=== PATIENT | female | born 1945 | race Caucasian/White ===

== ENCOUNTER → 2016-11-22 | Outpatient (CLI) | payer MEDICARE ==
[~2016-11-22] MED LIST: AMLODIPINE BESYL5 MG PO; ASPIRIN81 M2 PO; ASPIRIN81 MG PO; CALTRATE-600/VI1 TA2 PO; FISH OIL500 MG PO; FLEXERIL10 MG PO; IMDUR-ER30 M1 PO; LEVOTHYROXINE25 MCG PO; LIPITOR40 MG PO; LOTENSIN20 MG PO; LOTREL PO; METHOTREXATE25 MG/M3 IJ; METOPROLOL TAR25 MG PO; MULTI VITAMIN1 EACH PO; NITROSTAT0.4 MG SL; PHENERGAN25 MG PO; PRAVACHOL20 MG PO; PRAVASTATIN SOD20 MG PO; SYNTHROID PO; ULTRACET TABLE1 EACH PO
--- NOTE | ~2016-11-22 | MY11 ---
[facility] A Service of [facility] RADIOLOGY TEXT RESULTS PATIENT: DARIEN DAVE LOCATION: [facility] : 49 UNIT #: [id number] AGE: [address]: Darío Acosta MD SEX: F ORDER DR: [id number] [place] [id number] MR#: [id number] Acc #: [id number] NAME: DARIEN DAVE : 1945 SEX: F STUDY DATE/TIME: 11/22/2016 12:02 UNIT: [facility] ROOM: STUDY DESCRIPTION: MY Mammogram Screening Dig Redd Attending Physician: Darío Acosta M.D. Referring Physician: Darío Acosta M.D. Ordering Physician: Darío Acosta M.D. Primary Care Physician: Darío Acosta M.D. MEDICAL IMAGING REPORT This report is preliminary unless electronic signature is present. Digital screening mammogram, 11/22/2016, [facility]. HISTORY 71-year-old woman, no risk elevation. Annual screen. COMPARISON Mammograms date to 04/04/06 with most recent 04/29/13. Digital imaging of each breast was completed utilizing screening protocol. Review includes FDA-approved CAD device. The breast parenchyma is partially fatty replaced with residual fibroglandular densities in each breast slightly dominant upper central right breast. Small nodule centrally located left breast is stable. There is no interval occurring breast mass. I see no suspicious microcalcifications and no architectural deformity. IMPRESSION Stable benign mammogram. Annual screening recommended. Patients over the age of 40 are entered into a reminder system with target due date for the next mammogram. A result letter will also be sent to the patient. BIRADS: 2 Benign findings. Dictated by... Fer Lange M.D. THIS IS AN ELECTRONICALLY VERIFIED REPORT Fer Lange M.D. at 11/23/2016 8:10 AM JBB/jt [facility] A Service of [facility] RADIOLOGY TEXT RESULTS PATIENT: DARIEN DAVE LOCATION: [facility] #: [id number] : [birth year] UNIT #: [id number] AGE: [address]: Darío Acosta MD SEX: F ORDER DR: TD: 11/22/2016 16:02 JOB #: [id number] MEDICAL IMAGING REPORT Page 1 of 1
== END | disposition home or self-care (01) ==
LOC: SMAM 10:57
DX: Z12.31 Encounter for screening mammogram for malignant neoplasm of breast (principal)
CPT/HCPCS: G0202